=== PATIENT | female | born 1995 | race African-American/Black ===

== ENCOUNTER 2018-11-10 21:52 | Emergency (ER) | payer SELFPAY ==
[~2018-11-10] VITALS: Ht 170.2 cm; Wt 127.3 kg
[2018-11-11 00:30] VITALS: BP 132/68
[2018-11-11] MEDS ORDERED: ACETAMINOPHEN/CODEINE 300-30 MG TABLET PO ONE (01:00)
[2018-11-11] MEDS ORDERED: KETOROLAC TROMETHAMINE 60 MG/2 ML VIAL IM ONE (01:00)
== END 2018-11-11 01:25 | disposition home or self-care (01) ==
LOC: EMS 21:52
DX: S13.4XXA Sprain of ligaments of cervical spine, initial encounter (principal); S00.03XA Contusion of scalp, initial encounter; S80.11XA Contusion of right lower leg, initial encounter; S90.511A Abrasion, right ankle, initial encounter; Y04.8XXA Assault by other bodily force, initial encounter; Y93.89 Activity, other specified; Y92.89 Other specified places as the place of occurrence of the external cause; Y99.8 Other external cause status
CPT/HCPCS: 96372; 99283; J1885

== ENCOUNTER 2021-09-09 09:22 | Emergency (ER) | payer MEDICAID, OTHER ==
[~2021-09-09] VITALS: Ht 170.2 cm; Wt 126.8 kg
[2021-09-09 10:04] VITALS: BP 111/66
[2021-09-09] MEDS ORDERED: ACETAMINOPHEN 325 MG TABLET PO ONE (11:00)
[2021-09-09 11:31] LABS: COVID AG,FIA SOURCE NASOPHARYNGEAL
[2021-09-09 11:46] LABS: RAPID GROUP A STREP NEGATIVE (NEGATIVE)
[2021-09-09 11:51] LABS: INFLUENZA TYPE A NEGATIVE FOR TYPE A (NEGATIVE); INFLUENZA TYPE B NEGATIVE FOR TYPE B (NEGATIVE)
[2021-09-09] MEDS ORDERED: IBUP-1554 PO (23:15)
[2021-09-09] MEDS ORDERED: CEPH-558 PO (23:15)
[2021-09-09] MEDS ORDERED: HYDR-4723 PO (23:15)
== END 2021-09-09 14:14 | disposition home or self-care (01) ==
LOC: EMS 09:22
DX: J02.9 Acute pharyngitis, unspecified (principal); Z20.822 Contact with and (suspected) exposure to COVID-19; E66.9 Obesity, unspecified
CPT/HCPCS: 87430; 87804; 99283

== ENCOUNTER 2021-09-09 22:29 | Emergency (ER) | payer OTHER ==
[~2021-09-09] VITALS: Ht 170.2 cm; Wt 126.8 kg
[2021-09-09] MEDS ORDERED: IBUPROFEN 600 MG TABLET PO ONE (23:00)
[2021-09-09] MEDS ORDERED: HYDROCODONE/ACETAMINOPHEN 5-325 MG TABLET PO ONE (23:00)
[2021-09-09] MEDS ORDERED: LIDOCAINE 2% VISCOUS 15 ML SOLUTION UDCUP PO ONE (23:00)
[2021-09-09 23:15] VITALS: BP 130/65
[2021-09-09] MEDS ORDERED: HYDR-4723 PO (23:15)
[2021-09-09] MEDS ORDERED: CEPH-558 PO (23:15)
[2021-09-09] MEDS ORDERED: IBUP-1554 PO (23:15)
== END 2021-09-09 23:55 | disposition home or self-care (01) ==
LOC: EMS 22:30
DX: J02.9 Acute pharyngitis, unspecified (principal)
CPT/HCPCS: 99284; Z7502; Z7610